=== PATIENT | female | born 1970 | race Caucasian/White ===

== ENCOUNTER 2017-06-18 10:39 | Emergency (ER) | payer OTHER ==
[2017-06-18 10:56] VITALS: BP 110/65; PULSE 71; BMI 21.4
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
== END 2017-06-18 12:11 | disposition home or self-care (01) ==
LOC: JERFT 10:39 → JER 10:39
DX: T59.811A Toxic effect of smoke, accidental (unintentional), initial encounter (principal); J68.9 Unspecified respiratory condition due to chemicals, gases, fumes and vapors; Y92.811 Bus as the place of occurrence of the external cause; F84.0 Autistic disorder; G43.909 Migraine, unspecified, not intractable, without status migrainosus; E55.9 Vitamin D deficiency, unspecified
CPT/HCPCS: 99282-25

== ENCOUNTER 2023-11-24 18:33 | Emergency (ER) | payer OTHER ==
[2023-11-24 18:41] VITALS: BMI 25.8
[2023-11-24] MEDS ORDERED: FAMOTIDINE 10 MG/ML VIAL IVPB ONE (19:32)
[2023-11-24] MEDS ORDERED: ONDANSETRON 4 MG/2 ML VIAL ONE (19:32)
[2023-11-24] MEDS: ONDANSETRON 4 MG/2 ML VIAL IVPUSH ONE (20:17)
[2023-11-24] MEDS: SODIUM CHLORIDE 500 ML IV STA (20:17)
[2023-11-24] MEDS: FAMOTIDINE 20 MG/50 ML IVPB 20 MG/50 ML MG IVPB ONE (20:17)
[2023-11-24 20:19] LABS: BASO % 0.3 % (0-2.0); EOS % 0.5 % (0-4.5); HEMATOCRIT 41.6 % (32.4-45.2); HEMOGLOBIN 14.2 GM/dL (10.7-15.3); MCH 28.4 pg (25.7-33.7); MCHC 34.3 g/dl (32.0-36.0); MEAN CELL VOLUME 82.8 fl (80-96); MEAN PLT VOLUME 10.7 fl (7.5-11.1); MONO % 5.8 % (3.8-10.2); NEUT % 70.4 % (42.8-82.8); PLATELET COUNT 362 10^3/uL (134-434); RBC 5.02 M/mm3 (3.60-5.2); RDW 14.3 % (11.6-15.6); WHITE BLOOD COUNT 12.9 K/mm3 (4.0-10.0)
[2023-11-24 20:40] LABS: POTASSIUM 4.3 mmol/L (3.5-5.1)
[2023-11-24 20:41] LABS: ALBUMIN 3.8 g/dl (3.4-5.0); CALCIUM 10.3 mg/dL (8.5-10.1)
[2023-11-24 20:42] LABS: BLOOD UREA NITROGEN 16.2 mg/dL (7-18)
[2023-11-24 20:45] LABS: CREATININE 0.6 mg/dL (0.55-1.3)
[2023-11-24 20:46] LABS: BILIRUBIN,TOTAL 0.4 mg/dL (0.2-1); TOT PROT 8.4 g/dl (6.4-8.2)
[2023-11-24] MEDS ORDERED: HALOPERIDOL LACTATE 5 MG/ML ONE (20:54)
[2023-11-24] MEDS: HALOPERIDOL LACTATE 5 MG/ML IM ONE (21:00)
[2023-11-24] MEDS: diphenhydrAMINE HCL 25 MG CAPSULE (FP) PO ONE (21:02)
[2023-11-24] MEDS ORDERED: MIDAZOLAM HCL 2 MG/2 ML SINGLE DOSE VIAL ONE (21:23)
[2023-11-24] MEDS: MIDAZOLAM HCL 2 MG/2 ML SINGLE DOSE VIAL IVPUSH ONE (21:34)
[2023-11-24 22:21] LABS: URINE APPEARANCE CLEAR; URINE BILIRUBIN NEGATIVE (NEGATIVE); URINE COLOR YELLOW; URINE GLUCOSE (UA) NEGATIVE (NEGATIVE); URINE KETONE NEGATIVE (NEGATIVE); URINE LEUK ESTERASE NEGATIVE (NEGATIVE); URINE NITRITE NEGATIVE (NEGATIVE); URINE PROTEIN NEGATIVE (NEGATIVE); URINE UROBILINOGEN 0.2 mg/dL (0.2-1.0)
[2023-11-25] MEDS: SUCRALFATE 1 GM TABLET (FP) PO ONE (00:02)
[2023-11-25] MEDS ORDERED: MAG HYDROX/AL HYDROX/SIMETH 30 ML UNIT-DOSE CUP ONE (00:04)
[2023-11-25] MEDS ORDERED: PANTOPRAZOLE SODIUM 40 MG VIAL ONE (00:05)
[2023-11-25] MEDS: PANTOPRAZOLE SODIUM 40 MG VIAL IVPUSH ONE (00:10)
[2023-11-25] MEDS: MAG HYDROX/AL HYDROX/SIMETH 30 ML UNIT-DOSE CUP PO ONE (00:10)
[2023-11-25 00:17] VITALS: BP 154/79; PULSE 81; RESP 16; TEMP 97.8
== END 2023-11-25 01:00 | disposition home or self-care (01) ==
LOC: JER 18:33
PROC: 3E033GC Introduction of Other Therapeutic Substance into Peripheral Vein, Percutaneous Approach (ICD-10-PCS; principal; 2023-11-24)
PROC: 3E033GC Introduction of Other Therapeutic Substance into Peripheral Vein, Percutaneous Approach (ICD-10-PCS; 2023-11-24)
PROC: 3E033GC Introduction of Other Therapeutic Substance into Peripheral Vein, Percutaneous Approach (ICD-10-PCS; 2023-11-24)
PROC: 3E033GC Introduction of Other Therapeutic Substance into Peripheral Vein, Percutaneous Approach (ICD-10-PCS; 2023-11-24)
PROC: 3E033GC Introduction of Other Therapeutic Substance into Peripheral Vein, Percutaneous Approach (ICD-10-PCS; 2023-11-24)
PROC: 3E023GC Introduction of Other Therapeutic Substance into Muscle, Percutaneous Approach (ICD-10-PCS; 2023-11-24)
DX: R11.10 Vomiting, unspecified (principal); K29.70 Gastritis, unspecified, without bleeding; K20.90 Esophagitis, unspecified without bleeding; Z20.822 Contact with and (suspected) exposure to COVID-19
CPT/HCPCS: 0241U-QW; 36415; 71045-TC-FY; 74177-TC; 80053; 81003; 83605; 83690; 84484; 85025; 86850; 86900; 86901; 87086; 93005; 93010; 99285-25; Q9967

== ENCOUNTER 2024-05-21 19:48 | Emergency (ER) | payer OTHER ==
[2024-05-21 19:55] VITALS: BP 98/62; PULSE 95; RESP 18; TEMP 97.5; BMI 11.9
== END 2024-05-21 23:37 | disposition home or self-care (01) ==
LOC: JERFT 19:48 → JER 19:48
DX: S90.31XA Contusion of right foot, initial encounter (principal); X58.XXXA Exposure to other specified factors, initial encounter
CPT/HCPCS: 73630-TC-RT-FY; 99283-25